=== PATIENT | female | born 1995 | race African-American/Black ===

== ENCOUNTER → 2020-09-14 | Outpatient (REF) | payer OTHER, SELFPAY ==
[2020-09-17 15:07] LABS: MUMPS VIRUS IgG ANTIBODY 33.1 AU/mL (Immune >10.9); RUBEOLA IgG ANTIBODY >300.0 AU/mL (Immune >16.4)
== END ==
LOC: M LAB REF 17:11
PROVIDERS: ATTEND Physician Assistant
DX: Z00.00 Encounter for general adult medical examination without abnormal findings (principal)

== ENCOUNTER → 2024-10-11 | Outpatient (CLI) | payer OTHER, SELFPAY | LOC: M PLAIMG 07:32 | PROVIDERS: ATTEND Physician Assistant | DX: Z82.49 Family history of ischemic heart disease and other diseases of the circulatory system (principal) ==